=== PATIENT | female | born 1965 | race African-American/Black ===

== ENCOUNTER 2017-10-24 15:47 | Emergency (ER) | payer MEDICAID, OTHER ==
[~2017-10-24] VITALS: Ht 157.5 cm; Wt 74.8 kg
[2017-10-24 15:50] VITALS: BP 115/72
--- NOTE | 2017-10-24 16:06 | Emergency Room Report ---
History of Present Illness General Chief Complaint: Lower Extremity Injury Source: Patient Present Illness HPI 52 y/o female c/o left 5th digit injury 9 days ago. States she had stubbed her toe against a solid object and since then has been having continued pain and swelling at the base of the 5th digit of the left foot. States pain improves with soaking her foot in epson salt temporarily and worse with movement and walking. States she has difficulty ambulating due to the pain and cannot put a show on due to the pain and swelling. Not taking PO medications for her symptoms because she does not like to take medications. Denies RICE therapy or nick taping. Patient denies any numbness, tingling, pressure, paralysis, cyanosis, bruising, loss of sensation, or loss of range of motion. Allergies: Coded Allergies: No Known Allergies (Unverified , 10/24/17) Patient History Past Medical History: see triage record Last Menstrual Period: menopause Reviewed Nursing Documentation: PMH: Agreed, PSxH: Agreed Nursing Documentation-PMH Past Medical History: No History, Except For Review of Systems All Other Systems: negative except mentioned in HPI Physical Exam Vital Signs Date Time Temp Pulse Resp B/P (MAP) Pulse Ox O2 Delivery O2 Flow Rate FiO2 10/24/17 15:49 98.4 93 18 115/72 100 Room Air Sp02 EP Interpretation: reviewed, normal General Appearance: no apparent distress, alert, GCS 15, non-toxic Head: normocephalic, atraumatic Eyes: bilateral eye normal inspection, bilateral eye PERRL Respiratory: normal breath sounds, no respiratory distress Cardiovascular #1: normal capillary refill Musculoskeletal: normal range of motion, swelling - 5th digit of left foot, other - nails normal. No signs of infection. Antalgic gait, tender - TTP base of the 5th digit of left foot. Neurologic: alert, oriented x3, responsive, motor strength/tone normal, sensory intact, speech normal Skin: normal color, no rash, warm/dry, well hydrated Medical Decision Making PA Attestation Dr. Nuñez is my supervising physician with whom patient management has been discussed with. Diagnostic Impression: Primary Impression: Fracture of proximal phalanx of toe of left foot ER Course Pt. presents to the ED c/o toe pain Ddx considered but are not limited to fracture, contusion, dislocation, sprain, strain Vital signs: are WNL, pt. is afebrile H&PE are most consistent with buckle fracture of the proximal left 5th digit. ORDERS: XR Foot ED INTERVENTIONS: Nick tape, ICE, post op shoe, crutches DISCHARGE: At this time pt. is stable for d/c to home. Will provide printed patient care instructions, and any necessary prescriptions. Care plan and follow up instructions have been discussed with the patient prior to discharge. Other X-Ray Diagnostic Results Other X-Ray Diagnostic Results : # of Views/Limited Vs Complete: 3 View Indication: Pain EP Interpretation: Yes ZAN Xray: Interpretation reviewed, by supervising MD, and agrees with findings. Interpretation: no dislocation, no soft tissue swelling, other - +buckle fracture base of proximal phalanx of 5th digit of left foot Electronically Signed by: Maye Patrick PA-C Last Vital Signs Date Time Temp Pulse Resp B/P (MAP) Pulse Ox O2 Delivery O2 Flow Rate FiO2 10/24/17 15:49 98.4 93 18 115/72 100 Room Air Disposition: HOME, SELF-CARE Condition: Stable Scripts Naproxen* (NAPROXEN*) 500 Mg Tablet.dr 500 MG ORAL TWICE A DAY for 10 Days, #20 TAB Prov: MAYE PATRICK 10/24/17 Patient Instructions: Toe Fracture With [facility] Additional Instructions: Takie medication as directed. Patient advised to follow up with primary care provider within next 3-5 days. Keep splint and crutches as directed. Advised patient to use RICE therapy and nsaids as prescribed. Patient is to go to the ER immediately if they experience any pain that is not responding to medication , excess swelling, pressure feeling, loss of color, cyanosis, paralysis, or numbness. MAYE PATRICK Oct 24, 2017 16:06
[2017-10-24] MEDS ORDERED: NAPROXEN500 M1 ORAL (16:27)
[2017-10-24 16:39] VITALS: BP 115/72
--- NOTE | 2017-10-25 09:32 | Diagnostic Imaging Report ---
Indication: Reason For Exam: PAIN Technique: XRAY Foot Complete L Comparison: None. Findings: The bones are intact. There is no fracture or bone destruction. The visualized joints are normal. The soft tissues are unremarkable. Impression: Normal.
== END 2017-10-24 16:39 | disposition home or self-care (01) ==
LOC: EMR 16:20
DX: S92.512A Displaced fracture of proximal phalanx of left lesser toe(s), initial encounter for closed fracture (principal); W22.8XXA Striking against or struck by other objects, initial encounter; Y92.9 Unspecified place or not applicable
CPT/HCPCS: 99283